=== PATIENT | male | born 2000 | race Caucasian/White ===

== ENCOUNTER 2022-04-19 08:51 | Emergency (ER) | payer BC, SELFPAY ==
[2022-04-19 09:01] VITALS: BP 136/83; PULSE 97; RESP 16; TEMP 37; O2SAT 99
--- NOTE | 2022-04-19 09:08 | ED.URI ---
HPI - URI/Sore Throat General Chief Complaint: Upper Respiratory Infection Stated Complaint: COUGH/COLD/SOB Time Seen by Provider: 04/19/22 09:08 Source: patient Mode of arrival: ambulatory Limitations: no limitations History of Present Illness HPI Narrative: [age] year male presents with complaint nasal congestion, postnasal drainage, sinus pressure, cough for 1 and half to 2 weeks. Afebrile. Today he woke up with headache and body aches. Is concerned for bacterial sinus infection. Denies nausea vomiting diarrhea. No chest pain or shortness of breath. All systems reviewed and negative except as noted above. Related Data Home Medications Medication Instructions Recorded Confirmed alprazolam 0.25 mg tablet 0.25 mg PO PRN PRN Anxiety 04/19/22 04/19/22 citalopram 40 mg tablet 40 mg PO DAILY 04/19/22 04/19/22 lamotrigine 25 mg tablet 25 mg PO DAILY 04/19/22 04/19/22 lisinopril 5 mg tablet 5 mg PO DAILY 04/19/22 04/19/22 omeprazole 20 mg capsule,delayed 20 mg PO DAILY 04/19/22 04/19/22 release topiramate 25 mg tablet 25 mg PO HS 04/19/22 04/19/22 Allergies Allergy/AdvReac Type Severity Reaction Status Date / Time No Known Allergies Allergy Verified 04/19/22 09:00 Review of Systems Review of Systems: CONSTITUTIONAL: Denies fever, chills, or sweats. Reports fatigue. EYES: Denies visual changes, redness, or discharge. ENT: Reports rhinorrhea, congestion, sore throat. Denies otalgia. CARDIOVASCULAR: Denies chest pain, palpitations, or edema. RESPIRATORY: Reports cough. Denies dyspnea. GASTROINTESTINAL: Denies abdominal pain, nausea, vomiting, or diarrhea. GENITOURINARY: Denies dysuria or hematuria. SKIN: Denies rash or itching. MUSCULOSKELETAL: Denies back pain, joint pain, or myalgia. NEUROLOGIC: Reports headache. Denies numbness, or weakness. PSYCHIATRIC: Denies anxiety or depression. All other systems reviewed are negative, except as documented in HPI. PMFSH Comments At time of signature, agree with nursing past medical, surgical, social and family history. There is no relevant family history pertinent to the presenting complaint. Exam Narrative: GENERAL: This is a well-nourished, well-developed patient, in no apparent distress. HEAD: normocephalic, atraumatic. EYES: PERRL. Sclera clear/white. Vision is grossly intact. EARS: External ears normal, auditory canals clear and without drainage, fluid bilateral TMs without erythema. No perforation bilaterally. NOSE: External nose normal with PERRLA nasal drainage, moderate congestion, bilateral maxillary sinus tenderness. THROAT: Mucous membranes moist, erythema with postnasal drainage. NECK: Neck supple, non-tender without lymphadenopathy, masses or thyromegaly. CARDIOVASCULAR: Regular rate and rhythm without murmurs, gallops, or rubs. RESPIRATORY: Clear to auscultation. Breath sounds equal bilaterally. No wheezes, rales, or rhonchi. SKIN: warm, Dry, intact with no suspicious lesions or rash, good texture and turgor. NEURO: awake, alert, and oriented to person, place and time. There were no obvious focal neurologic abnormalities. EXTREMITIES: No joint tenderness, effusion, or edema noted. Course Course Level of Care: Express Care Visit Vital Signs Vital signs: Vital Signs Temperature 37.0 C 04/19/22 09:01 Pulse Rate 97 04/19/22 09:01 Respiratory Rate 16 04/19/22 09:01 Blood Pressure 136/83 04/19/22 09:01 Pulse Oximetry 99 04/19/22 09:01 Temperature 37.0 C 04/19/22 09:01 Pulse Rate 97 04/19/22 09:01 Respiratory Rate 16 04/19/22 09:01 Blood Pressure 136/83 04/19/22 09:01 Pulse Oximetry 99 04/19/22 09:01 Reviewed MDM - URI/Sore Throat MDM Narrative Medical decision making narrative: Patient is aware of diagnosis, understands and agrees to treatment plan. Anticipatory guidance given. Patient agrees to follow-up as directed and is aware of reasons to seek care at the emergency department. Portions of t
== END 2022-04-19 09:23 | disposition home or self-care (01) ==
PROVIDERS: Emergency Provider Nurse Practitioner Family; PCP Nurse Practitioner Family
DX: J01.90 Acute sinusitis, unspecified (principal); B96.89 Other specified bacterial agents as the cause of diseases classified elsewhere
CPT/HCPCS: 99213; G0463

== ENCOUNTER 2023-04-28 22:09 | Emergency (ER) | payer BC, SELFPAY ==
--- NOTE | ~2023-04-28 | XR_ITS ---
Portable chest x-ray Comparison: None Clinical History: Hemoptysis Findings: Lungs are clear, without focal consolidation or pleural effusion. Cardiomediastinal silho uette is unremarkable. Bones and soft tissues are unremarkable. Impression: Normal chest. Reviewed, dictated and finalized at location M. Impression: Normal chest.
[2023-04-28 22:16] VITALS: BP 152/87; PULSE 99; RESP 18; TEMP 37.2; O2SAT 98
[2023-04-28 22:22] VITALS: O2SAT 98
--- NOTE | 2023-04-28 22:27 | ED.GENADULT ---
HPI - General Adult General Chief complaint: Upper Respiratory Infection Stated complaint: coughing up blood Time Seen by Provider: 04/28/23 22:20 History of Present Illness HPI narrative: Aldair is a 22M with a PMH of vaping that presented to the ED with a cough and 1 episode of hemoptysis. He has had a productive cough for a couple weeks but had one episode of a small amount of hemoptysis. He was concerned so he came in to the ED. He denied CP, dyspnea, lightheadedness, fevers nausea and vomiting. Related Data Home Medications Medication Instructions Recorded Confirmed alprazolam 0.25 mg tablet 0.25 mg PO PRN PRN Anxiety 04/19/22 04/28/23 citalopram 40 mg tablet 40 mg PO DAILY 04/19/22 04/28/23 lamotrigine 25 mg tablet 25 mg PO DAILY 04/19/22 04/28/23 lisinopril 5 mg tablet 5 mg PO DAILY 04/19/22 04/28/23 omeprazole 20 mg capsule,delayed 20 mg PO DAILY 04/19/22 04/28/23 release topiramate 25 mg tablet 25 mg PO HS 04/19/22 04/28/23 Allergies Allergy/AdvReac Type Severity Reaction Status Date / Time No Known Allergies Allergy Verified 04/28/23 22:15 Review of Systems Review of Systems: All systems reviewed & are unremarkable except as noted in HPI and below Exam Const: General: cooperative, healthy appearing, comfortable, no acute distress, well developed, alert, awake and Physically active Orientation/consciousness: oriented to person, oriented to place and oriented to time HENMT: Head: normal to inspection, normocephalic and atraumatic Ears: hearing grossly normal bilaterally and external ears normal Face/Nose/Sinus: Normal external nose present Eyes: General: appearance normal, both eyes and all related structures Periorbital: periorbital findings normal Sclera: sclerae normal Pupils: Equal, round and reactive pupils present Neck: Neck: normal visual inspection Chest: Chest palpation & inspection: normal inspection of the chest Resp: Effort & Inspection: normal respiratory effort, able to speak in complete sentences and no respiratory distress Other: scant wheezing on exam. No cough present on exam. Cardio: Jugular venous distension: no JVD Rate: regular rate Rhythm: regular rhythm Skin: General skin exam: normal color and no rashes or lesions noted Neuro: General: oriented to person, oriented to place and oriented to time Cranial nerves: Yes Equal, round and reactive pupils present Extrem: General: normal to inspection Course Course Emergency Course: Given his chronic cough and frequent vape use the source of the blood is most likely bronchitis. Will treat with prednisone and doxycycline. He was advised to quit vaping. Vital Signs Vital signs: Vital Signs Temperature 98.9 F 04/28/23 22:16 Pulse Rate 99 04/28/23 22:16 Respiratory Rate 18 04/28/23 22:16 Blood Pressure 152/87 H 04/28/23 22:16 Pulse Oximetry 98 04/28/23 22:16 Oxygen Delivery Room Air 04/28/23 22:16 Temperature 98.9 F 04/28/23 22:16 Pulse Rate 99 04/28/23 22:16 Respiratory Rate 18 04/28/23 22:16 Blood Pressure 152/87 H 04/28/23 22:16 Pulse Oximetry 98 04/28/23 22:22 Oxygen Delivery Room Air 04/28/23 22:22 Medical Decision Making Vital Signs Vital Signs: Vital Signs Temperature 98.9 F 04/28/23 22:16 Pulse Rate 99 04/28/23 22:16 Respiratory Rate 18 04/28/23 22:16 Blood Pressure 152/87 H 04/28/23 22:16 Pulse Oximetry 98 04/28/23 22:16 Oxygen Delivery Room Air 04/28/23 22:16 Temperature 98.9 F 04/28/23 22:16 Pulse Rate 99 04/28/23 22:16 Respiratory Rate 18 04/28/23 22:16 Blood Pressure 152/87 H 04/28/23 22:16 Pulse Oximetry 98 04/28/23 22:22 Oxygen Delivery Room Air 04/28/23 22:22 Lab Data 04/28/23 22:43 04/28/23 22:43 Labs: Lab Results 04/28/23 Range/Units 22:43 WBC 7.9 (4.8-10.8) K/mm3 RBC 5.22 (4.70-6.10) M/mm3 Hgb 15.1 (14.0-18.0) g/dL Hct 44.3 (40.0-54.0) % [facility]
[2023-04-28 22:46] LABS: Basophils Absolute Auto 0.05 K/mm3 (0.00-0.10); Basophils Percent Auto 0.6 % (0.0-1.0); Eosinophils Percent Auto 1.3 % (1.0-6.0); Hematocrit 44.3 % (40.0-54.0); Hemoglobin 15.1 g/dL (14.0-18.0); Immature Granulocyte Absolute 0.04 K/mm3 (0.00-0.00); Immature Granulocyte Percent A 0.5 % (0.0-0.0); Lymphocytes Absolute Auto 1.48 K/mm3 (1.10-4.50); Lymphocytes Percent Auto 18.7 % (18.0-42.0); Mean Corpuscular HGB Conc 34.1 g/dL (32.0-36.0); Mean Corpuscular Hemoglobin 28.9 pg (27.0-31.0); Mean Corpuscular Volume 84.9 fL (78.0-102.0); Mean Platelet Volume 9.1 fl (8.7-11.0); Monocytes Percent Auto 10.1 % (2.0-11.0); Neutrophils Absolute Auto 5.5 K/mm3 (1.7-7.2); Neutrophils Percent Auto 68.8 % (50.0-70.0); Platelet Count Result 265 K/mm3 (150-420); Red Blood Count 5.22 M/mm3 (4.70-6.10); Red Cell Distribution Width 13.2 % (11.6-14.4); White Blood Count 7.9 K/mm3 (4.8-10.8)
[2023-04-28 22:59] LABS: INR 0.9; Prothrombin Time 10.4 Seconds (9.50-12.10)
[2023-04-28 23:04] LABS: Alanine Aminotransferase 36 U/L (16-63); Alkaline Phosphatase 79 U/L (46-116); Anion Gap 11 mmol/L (8-16); Aspartate Amino Transferase 17 U/L (15-37); Bilirubin,Total 0.3 mg/dL (0.00-1.00); Blood Urea Nitrogen 19 mg/dL (7-18); Calcium 8.8 mg/dL (8.5-10.1); Carbon Dioxide 25 mmol/L (21-32); Chloride 103 mmol/L (98-108); Estimated CRCL calculation 150 ml/min; Estimated Glomerular Filt Rate > 60; Glucose 115 mg/dL (70-99); Osmolality Calculated 291 mOsm/kg (285-295); Potassium 3.6 mmol/L (3.5-5.1); Sodium 139 mmol/L (136-145); Total Protein 7.2 g/dL (6.4-8.2)
[2023-04-28] MEDS: DOXYCYCLINE HYCLATE 100 MG TABLET PO (23:36)
[2023-04-28] MEDS: predniSONE 40 MG, predniSONE 10 MG 50 MG PO (23:37)
[2023-04-28 23:39] VITALS: BP 139/83; PULSE 98; RESP 18; O2SAT 97
== END 2023-04-28 23:41 | disposition home or self-care (01) ==
PROVIDERS: Emergency Provider Family Medicine; PCP Nurse Practitioner Family
DX: J40 Bronchitis, not specified as acute or chronic (principal); Z79.899 Other long term (current) drug therapy
CPT/HCPCS: 36415; 71045; 80053; 85025; 85610; 99283; A9270; J7512